=== PATIENT | female | born 2000 | race African-American/Black ===

== ENCOUNTER 2022-03-25 10:39 | Emergency (ER) | payer OTHER, SELFPAY ==
[2022-03-25 10:47] VITALS: BP 119/70; BP 122/87; PULSE 52; PULSE 87; RESP 16; O2SAT 97; O2SAT 98; BMI 35.6
--- NOTE | 2022-03-25 11:10 | ECG_ITS ---
Test Reason : dizziness Blood Pressure : / mmHG Vent. Rate : 083 BPM Atrial Rate : 083 BPM P-R Int : 146 ms QRS Dur : 076 ms QT Int : 354 ms P-R-T Axes : 045 018 011 degrees QTc Int : 415 ms Normal sinus rhythm Normal ECG No previous ECGs available Referred By: Sadie Sellers Electronically Signed By:PAT RAMÍREZ MD
[2022-03-25 11:22] VITALS: BP 115/68; PULSE 86; RESP 16; O2SAT 99
--- NOTE | 2022-03-25 11:23 | ED_ITS ---
HPI - Dizziness General Chief Complaint: Dizziness Stated Complaint: nausea/dizzy Time Seen by Provider: 03/25/22 11:10 Source: patient History of Present Illness HPI Narrative: 22 yo female with hx of sickle cell trait was doing her required [employer] PT this AM - she didn't eat this AM and after her push ups and sit ups she became dizzy in a hot gym when she started to run, no n/v no CP/SOB. She didn't drink much water today either. MD elicited complaint: dizziness Onset (ago): minute(s) (just prior to arrival ) Timing: gradual onset Severity: mild Description: lightheadedness Context: exertion History of similar symptoms: No Exacerbating factors: other (hot gym) Relieving factors: remaining still, rehydration and rest Associated symptoms: denies other symptoms Related Data Allergies Allergy/AdvReac Type Severity Reaction Status Date / Time amoxicillin AdvReac Hives Verified 03/25/22 10:54 Review of Systems Review of Systems: Constitutional : No Weight loss, No Fever, No Chills, No Fatigue, No Malaise ENT/Mouth : No sore throat, No Rhinorrhea Eyes: No Eye Pain, No Swelling, No Redness Cardiovascular : No Chest Pain, No SOB, No Dyspnea on Exertion, No Orthopnea, No Edema, No Palpitations Respiratory : No Cough, No Sputum, No Wheezing Gastrointestinal : No Nausea, No Vomiting, No Diarrhea, No Constipation, No abdominal Pain, No Hematochezia, No Melena Genitourinary : No Dysuria, No Urinary Frequency, No Hematuria, Musculoskeletal : No joint pain, No Myalgias, No Joint Swelling Skin : No Skin Lesions, No rash Neuro : No Weakness, No Numbness, pos Dizziness, No Headache Psych : No Anxiety/Panic, No Depression Heme/Lymph: No Bruising, No Bleeding,No Lymphadenopathy Endocrine : No Polyuria, No Polydipsia All other systems reviewed and are negative [facility] Past Medical History Attestation statement: The following information was validated with the patient. Medical History Sickle cell trait Social History Social History (Updated 03/25/22 @ 11:36 by Sadie Sellers DO) Patient Tobacco Use Status: Never used Tobacco Advance Directives: No Advance Directives Information Provided: No Physical Exam Vital Signs: Vital Signs: Last Vital Signs Pulse 86 03/25/22 11:22 Resp 16 03/25/22 11:22 BP 115/68 03/25/22 11:22 Pulse Ox 99 03/25/22 11:22 O2 Del Method 03/25/22 11:22 BMI result Body Mass Index 35.6 Appearance: Alert. Oriented X3. No acute distress. Eyes: Pupils equal, round and reactive to light. ENT: Pharynx normal. Neck: Normal inspection. Neck supple. CVS: Normal heart rate and rhythm. Pulses normal. Respiratory: No respiratory distress. Breath sounds normal. Abdomen: Soft and non-tender. Skin: Skin warm and dry. Normal skin color. Extremities: No lower extremity edema. Neuro: Oriented X 3. No motor deficit. No sensory deficit. Course Course Course Narrative: patient feels better and back to baseline, tolerating PO stable for DC MDM - Dizziness MDM Narrative Medical decision making narrative: 22 yo female with hx of sickle cell trait became dizzy while running - had just completed push ups and sit ups in hot gym for required PT - she didn't eat much this AM just light fruit and only about 10 ounces of water. She feels fine now and didn't experience CP/SOB at this time will obtain basic labs, EKG and anticipate her symptoms were due to lack of food and heat exposure in the gym. Lab Data Result diagrams: 03/25/22 11:26 03/25/22 11:26 Labs: Lab Results 03/25/22 03/25/22 Range/Units 11:26 11:26 WBC 9.5 (4.8-10.8) X10*3/uL RBC 5.54 H (4.20-5.50) X10*6/uL Hgb 14.9 (12.0-16.0) g/dl Hct 42.9 (37.0-47.0) % MCV 77.4 L (80.0-98.0) fL MCH 26.9 L (27.0-33.0) pg MCHC 34.7 (31.0-35.0) g/dl RDW 13.4 (11.0-16.0) % Plt Count 300 (160-400) X10*3/uL MPV 10.5 (9.4-12.3) fL Immature Gran % (Auto) 0.3 (0.0-0.4) % Neut % (Auto) 80.0 H (45-73) % Lymph % (Auto) 11.8 L (20-40) % [place] % (Auto) 7.5 (2-11) % Eos % (Auto) 0.1 (0-4) % Baso % (Auto) 0.3 (0-2) % Lymph # (Auto) 1.1 L (1.2-4.9) X10*3/uL [place] # (Auto) 0.7 (0.1-1.2) X10*3/uL Eos # (Auto) 0.0 (0.0-0.4) X10*3/uL Baso # (Auto) 0.0 (0.0-0.2) X10*3/uL Abs Immat Gran (auto) 0.03 (0.00-0.03) X10*3/uL Absolute Neuts (auto) 7.6 (2.0-8.3) x10*3/uL Absolute Nucleated RBC 0.000 (0.0-0.012) X10*3/uL Nucleated RBC % (auto) 0.0 (0.0-0.2) /100WBC Sodium 136 (135-145) mmol/L Potassium 5.1 (3.3-5.1) mmol/L Chloride 106 (96-108) mmol/L Carbon Dioxide 21 L (22-29) mmol/L Anion Gap 14 (12-20) BUN 10 (9-16) mg/dL Creatinine 0.83 (0.5-1.4) mg/dL Estim Creat Clear Calc 110.6 Estimated GFR > 60 Random Glucose 100 (60-115) mg/dL Calcium 9.2 (8.4-10.2) mg/dL ECG Data Attestation: I personally reviewed and interpreted this ECG as follows: ECG interpretation date: 03/25/22 ECG interpretation time: 11:38 Interpretation: Rate: 83 Rhythm: NSR [place]: normal Normal P waves. Normal ALBERT. Normal QRS complex. ST T wave : inverted t wave III, no CHIKA qTC: normal prior studies: no acute ischemia The study has been interpreted contemporaneously by me. . Discharge Plan Discharge Clinical Impression: Dizziness Patient Disposition: Home, Self-Care Instructions: Dizziness (ED) Additional Instructions: return to ED for any worsening symptoms or concerns stay hydrated today and eat plenty of meals Stand Alone Forms: Work/School Release
[2022-03-25 11:29] LABS: MANUAL DIFF FLAG NO
[2022-03-25 11:34] LABS: Basophils Percent Auto 0.3 % (0-2); Eosinophils Percent Auto 0.1 % (0-4); Hematocrit 42.9 % (37.0-47.0); Hemoglobin 14.9 g/dl (12.0-16.0); Imm Gran Abs Auto 0.03 X10*3/uL (0.00-0.03); Imm Gran Pct Auto 0.3 % (0.0-0.4); Lymphocytes Absolute Auto 1.1 X10*3/uL (1.2-4.9); Lymphocytes Percent Auto 11.8 % (20-40); Mean Corpuscular HGB Conc 34.7 g/dl (31.0-35.0); Mean Corpuscular Hemoglobin 26.9 pg (27.0-33.0); Mean Corpuscular Volume 77.4 fL (80.0-98.0); Mean Platelet Volume 10.5 fL (9.4-12.3); Monocytes Absolute Auto 0.7 X10*3/uL (0.1-1.2); Monocytes Percent Auto 7.5 % (2-11); Neutrophils Absolute Auto 7.6 x10*3/uL (2.0-8.3); Platelet Count 300 X10*3/uL (160-400); Red Blood Count 5.54 X10*6/uL (4.20-5.50); Red Cell Distribution Width 13.4 % (11.0-16.0); White Blood Count 9.5 X10*3/uL (4.8-10.8)
[2022-03-25 11:46] LABS: Anion Gap 14 (12-20); Blood Urea Nitrogen 10 mg/dL (9-16); Calcium 9.2 mg/dL (8.4-10.2); Carbon Dioxide 21 mmol/L (22-29); Chloride 106 mmol/L (96-108); Creatinine Clr Calc Pharmacy 110.6; Estimated Glomerular Filt Rate > 60; Glucose Random 100 mg/dL (60-115); Potassium 5.1 mmol/L (3.3-5.1); Sodium 136 mmol/L (135-145)
[2022-03-25 11:54] LABS: HCG Quantitative < 2 mIU/mL
== END 2022-03-25 12:20 | disposition home or self-care (01) ==
PROVIDERS: Emergency Provider Emergency Medicine
DX: R42 Dizziness and giddiness (principal)
CPT/HCPCS: 36415; 80048; 84702; 85025; 93005; 99283; 99284